=== PATIENT | female | born 1960 | race Caucasian/White ===

== ENCOUNTER → 2021-04-26 | Outpatient (CLI) | payer BC ==
[~2021-04-26] VITALS: Ht 157.5 cm; Wt 122.5 kg
[~2021-04-26] MED LIST: ACE-45 XX; ACET1TAB55 PO; ACET650T61 PO; ACYC200C8 PO; ALPR0.25 PO; ASPI81TA26 PO; BACTDSTA PO; BISAC5TA PO; CALCCAP4 PO; CLAR1TAB13 PO; COVI100V IM; D31000TA2 PO; DECA4TAB PO; DOCU100C16 PO; FAMO20TA PO; LIDOCAINE 1% MDV 20ML VIAL As Ordered ONE; MECL1TAB31 PO; METO5TAB2 PO; MIDAZOLAM INJ 2MG/2ML VIAL (J2250 PER 1MG) As Ordered ONE; NS 1,000 ML IV SCH; OLOP0.1D OU; OXYC-517 PO; POLY17PO18 PO; REVL10CA2 PO; REVL15CA PO; SENN-80 PO; SING10TA32 PO; SYST1SOL4 OU; VANCOMYCIN 1000MG/20ML VIAL As Ordered ONE; VANCOMYCIN 500MG/10ML VIAL As Ordered ONE; VANCOMYCIN HCL 1,000 MG, VIAL MATE ADAPTER 1 EACH in NS 250 ML IV ONE; VANCOMYCIN HCL 500 MG in D5W MINI-BAG PLUS 100 ML IV ONE; commode MC; diphenhydrAMINE 50MG/ML VIAL (J1200) As Ordered ONE; fentaNYL 100 MCG/2 ML INJECTION (J3010) As Ordered ONE; shower chair
--- NOTE | 2021-04-26 13:43 | IRHP ---
[facility] IR Pre-Procedure H & P General Date of Service: Apr 26, 2021 Procedure: Same Day Surgery Interval History and Physical I have seen the patient and reviewed last H & P performed within 30 days. There is no significant interval change. History of Present Illness Chief Complaint The patient is a 60-year-old female admitted with a reason for visit of multiple myeloma. PRE-PROCEDURE DIAGNOSIS: multiple myeloma HEART: normal rate. LUNGS: normal breathing a rest. ASA Classification ASA Classification: II-Mild systemic disease Mallampati Score: II NPO: Yes Problems with prior sedation: No Obstructive Sleep Apnea: No Plan moderate sedation Allergies Coded Allergies: Penicillins (Verified Allergy, Mild, rash, 10/21/20) shellfish derived (Verified Allergy, Mild, hives, 10/21/20) Home Medications Scheduled Acetaminophen (Acetaminophen), 2 TAB PO PRN, (Reported) Acetaminophen (Tylenol Arthritis), 2 TABS PO Q8H, (Reported) Acyclovir (Acyclovir), 1 TAB PO BID Aspirin (Aspirin EC), 1 TAB PO DAILY, (Reported) Bisacodyl (Bisacodyl), 2 TAB PO DAILYPRN, (Reported) Calcium Carbonate/Vitamin D3 (Calcium 600 + Vit D 400 Softgl), 1 TAB PO BID, (Reported) Cholecalciferol (Vitamin D3) (Vitamin D3), 2,000 UNITS PO DAILY, (Reported) Dexamethasone (Decadron), 5 TAB PO 1XWK Famotidine (Famotidine), 1 TAB PO DAILY, (Reported) Loratadine/Pseudoephedrine (Claritin-D 24 Hour Tablet), 1 TAB PO DAILY, (Reported) Olopatadine HCl (Olopatadine HCl), 1 DROP OU BIDP, (Reported) Oxycodone HCl (Oxycodone HCl), 1 TAB PO Q6HP Propylene Glycol/Peg 400/Pf (Systane 0.3-0.4% Eye Drop), 1 DROP OU TID, ( Reported) Sennosides (Senna), 2 TAB PO QHS, (Reported) Sulfamethoxazole/Trimethoprim (Sulfamethoxazole-Tmp Ds Tablet), 1 TAB PO 3XW Miscellaneous Medications Covid-19 Vacc,Mrna(Moderna)/Pf (Moderna Covid19 Vacc(Unapprov)), 100 MCG IM, (Reported) Discontinued Medications Docusate Sodium (Docusate Sodium), 1 CAP PO BID, (Reported) Discontinued Reason: Pt states not taking Lenalidomide (Revlimid), 1 CAP PO ASDIRECTED Discontinued Reason: Pt states not taking Metoclopramide HCl (Metoclopramide HCl), 1 TAB PO TIDP PRN for NAUSEA Discontinued Reason: Pt states not taking Polyethylene Glycol 3350 (Polyethylene Glycol 3350), 17 GRAMS PO BID, (Reported) Discontinued Reason: Pt states not taking Durable Medical Equipment Back Brace (Back Stabilizer), MIS XX, (DME) AMANDA RUCKER MD Apr 26, 2021 13:43
[2021-04-26 16:00] VITALS: BP 127/77
--- NOTE | 2021-05-03 16:08 | IRPON ---
IR Postoperative Note Date Of Procedure: Apr 26, 2021 Time Of Procedure: 16:00 IR Postoperative Note IR Ultrasound and fluoroscopy guided port placement IR Ultrasound of the neck. IR Moderate sedation. Clinical indication: Multiple myeloma. Physician: Dr. Romero. Procedure: The patient was advised of the benefits, risks, and alternatives of the procedure and informed consent was obtained. A time-out was performed with verification of the patient's name, MRN, site of procedure and type of procedure to be performed. The patient was positioned in the supine position on the angiographic table. The site was prepped and draped in the usual sterile fashion. Moderate sedation was performed by the physician including the presence of an independent trained RN who assisted and monitored the patient's level of consciousness and physiologic status. Following the administration of fentanyl and Versed , the physician spent 45 minutes of continuous face to face time with the patient. Ultrasound of the neck reveals a patent and compressible right internal jugular vein. A slp teacher radiograph reveals no gross abnormality. The neck and anterior chest wall were anesthetized with lidocaine. The right internal jugular vein was accessed using a microintroducer needle under ultrasound guidance, via a lateral approach. An 018 wire was advanced into the superior vena cava, the needle was removed and a microsheath was placed. An Amplatz wire was then passed into the inferior vena cava. An incision at the internal jugular vein access site and anterior chest wall were made using a scalpel. An incision was made at the anterior chest wall. A small pocket was created using a combination of blunt and sharp dissection. A tunneling device was then used to pass the catheter from the pocket to the neck puncture site. An 8- [employer] Smart power port was then positioned in the pocket. The catheter was then measured and cut. The introducer sheath was exchanged for a peel-away sheath. The catheter was passed through the peel-away sheath into the internal jugular vein and the peel-away sheath was removed. The port tip was positioned at the cavoatrial junction. The port was then accessed with a Ray needle. The port flushes and aspirates well. The puncture site in the neck was closed. The chest wall incision was then closed with 2-0 Vicryl and 4-0 Monocryl. Glue and Steri- Strips were applied. A sterile dressing was then applied. The patient tolerated the procedure well and was returned to the PRU in stable condition. Estimated blood loss: <5 ml. Complications: None. Conclusion: 1. Successful placement of an 8-[place] Smart power port via the right internal jugular vein. The port is ready for immediate use. 2. Patient to follow up in IR clinic in 2 weeks. Thank you for this referral. AMANDA ROMERO MD May 03, 2021 16:08
== END ==
LOC: M IRPRO 13:02
PROVIDERS: ATTEND Internal Medicine Medical Oncology
DX: C90.00 Multiple myeloma not having achieved remission (principal); Z79.82 Long term (current) use of aspirin; Z79.899 Other long term (current) drug therapy; Z88.0 Allergy status to penicillin; Z91.013 Allergy to seafood
CPT/HCPCS: 36561; 99152; 99153; C1769; C1788; C1894; J1200; J1642; J1644; J2250; J3010; J3370

== ENCOUNTER → 2021-05-25 | Outpatient (POV) | payer BC ==
[~2021-05-25] VITALS: Ht 160 cm; Wt 125.0 kg
[~2021-05-25] MED LIST changes: -LIDOCAINE 1% MDV 20ML VIAL As Ordered ONE; +LOSA25TA14 PO; +METO1TAB7 PO; -MIDAZOLAM INJ 2MG/2ML VIAL (J2250 PER 1MG) As Ordered ONE; -NS 1,000 ML IV SCH; +SIME80TA12 PO; -VANCOMYCIN 1000MG/20ML VIAL As Ordered ONE; -VANCOMYCIN 500MG/10ML VIAL As Ordered ONE; -VANCOMYCIN HCL 1,000 MG, VIAL MATE ADAPTER 1 EACH in NS 250 ML IV ONE; -VANCOMYCIN HCL 500 MG in D5W MINI-BAG PLUS 100 ML IV ONE; -diphenhydrAMINE 50MG/ML VIAL (J1200) As Ordered ONE; -fentaNYL 100 MCG/2 ML INJECTION (J3010) As Ordered ONE
[2021-05-25 14:25] VITALS: BP 168/70
--- NOTE | 2021-05-28 12:12 | IRPN ---
[facility] IR Progress Note IR Progress Note DATE: May 25, 2021 FOLLOW-UP: Patient is status post port placement. Patient reports she is doing well, no fevers, chills or pain at site. ON EXAMINATION: Port site appears to be healing well. No redness, swelling or discharge at site. IMPRESSION: Doing well status post port placement. No further follow-up scheduled unless initiated by patient and/or referring provider. Thank you for this referral Allergies Coded Allergies: Penicillins (Verified Allergy, Mild, rash, 10/21/20) shellfish derived (Verified Allergy, Mild, hives, 10/21/20) VS,Fishbone, I+O VS, Fishbone, I+O Vital Signs Date Time Temp Pulse Resp B/P (MAP) Pulse Ox O2 Delivery O2 Flow Rate FiO2 05/25/21 14:25 97.7 105 20 168/70 (102) 97 Room Air AMANDA RUCKER MD May 28, 2021 12:12
== END ==
LOC: M IRPOV 13:47
PROVIDERS: ATTEND Radiology Diagnostic Radiology
DX: Z45.2 Encounter for adjustment and management of vascular access device (principal); Z88.0 Allergy status to penicillin; Z91.013 Allergy to seafood

== ENCOUNTER → 2021-06-01 | Outpatient (REF) | payer BC ==
[2021-06-01 19:06] LABS: HEMATOCRIT 35.5 % (36.0-47.0); HEMOGLOBIN 11.6 g/dl (12.0-15.5); LYMPH # 0.2 10^3/uL (1.5-5.0); LYMPH % 2.7 % (24.0-44.0); MEAN CORPUSCULAR HEMOGLOBIN 29.5 pg (27.0-33.0); MEAN CORPUSCULAR HGB CONC 32.7 g/dl (32.0-36.5); MEAN CORPUSCULAR VOLUME 90.3 fl (80.0-96.0); MONO # 0.1 10^3/uL (0.0-0.8); MONO % 1.2 % (2.0-8.0); NEUTROPHILS # 5.4 10^3/uL (1.5-8.5); NEUTROPHILS % 95.6 % (36.0-66.0); PLATELET COUNT, AUTOMATED 169 10^3/uL (150-450); RED BLOOD COUNT 3.93 10^6/uL (4.00-5.40); WHITE BLOOD COUNT 5.7 10^3/uL (4.0-10.0)
[2021-06-01 19:22] LABS: ALBUMIN 3.8 GM/DL (3.2-5.2); BILIRUBIN,TOTAL 0.9 MG/DL (0.2-1.0); CALCIUM LEVEL 9.4 MG/DL (8.5-10.1); CREATININE FOR GFR 1.36 MG/DL (0.55-1.30); GLOMERULAR FILTRATION RATE 42.5 (>51); POTASSIUM SERUM 5.1 MEQ/L (3.5-5.1); TOTAL PROTEIN 6.5 GM/DL (6.4-8.2)
== END ==
LOC: M LAB REF 17:53
PROVIDERS: ATTEND Internal Medicine Medical Oncology
DX: C90.00 Multiple myeloma not having achieved remission (principal)

== ENCOUNTER → 2021-07-28 | Outpatient (REF) | payer BC ==
[~2021-07-28] MED LIST changes: +DEXA4TA PO
[2021-07-28 09:09] LABS: ALBUMIN 3.8 GM/DL (3.2-5.2); BILIRUBIN,TOTAL 1.2 MG/DL (0.2-1.0); CALCIUM LEVEL 9.6 MG/DL (8.5-10.1); CHOLESTEROL RISK RATIO 4.623 (<5); CREATININE FOR GFR 1.15 MG/DL (0.55-1.30); GLOMERULAR FILTRATION RATE 51.6 (>51); POTASSIUM SERUM 4.3 MEQ/L (3.5-5.1); TOTAL PROTEIN 6.3 GM/DL (6.4-8.2)
[2021-07-28 10:02] LABS: HEMOGLOBIN A1c 4.4 %
== END ==
LOC: M LAB REF 08:37
PROVIDERS: ATTEND Nurse Practitioner Family
DX: I10 Essential (primary) hypertension (principal)

== ENCOUNTER → 2022-05-25 | Outpatient (REF) | payer BC ==
[~2022-05-25] MED LIST changes: +ACYC1TAB PO; +ASPI1CHW3 PO; -D31000TA2 PO; +LOSA25TA13 PO; -LOSA25TA14 PO; +METO1TAB33 PO; -OLOP0.1D OU; +OLOP5DRO16 OU; +PEPC40TA12 PO; +VITA100093 PO
[2022-05-25 09:33] LABS: BASO # 0.1 10^3/uL (0.0-0.2); BASO % 2.3 % (0.0-1.0); EOS # 0.6 10^3/uL (0.0-0.5); EOS % 10.6 % (0.0-3.0); HEMOGLOBIN 14.1 g/dl (12.0-15.5); LYMPH % 17.4 % (24.0-44.0); MEAN CORPUSCULAR HEMOGLOBIN 29.3 pg (27.0-33.0); MEAN CORPUSCULAR VOLUME 91.3 fl (80.0-96.0); MONO # 0.5 10^3/uL (0.0-0.8); NEUTROPHILS # 3.5 10^3/uL (1.5-8.5); NEUTROPHILS % 59.8 % (36.0-66.0); PLATELET COUNT, AUTOMATED 202 10^3/uL (150-450); RED BLOOD COUNT 4.82 10^6/uL (4.00-5.40); WHITE BLOOD COUNT 5.8 10^3/uL (4.0-10.0)
[2022-05-25 10:23] LABS: APPEARANCE, URINE MANUAL HAZY (CLEAR); COLOR, URINE MANUAL DK YELLOW (YELLOW); SPECIFIC GRAVITY,URINE MANUAL 1.025 (1.002-1.035)
[2022-05-25 10:24] LABS: BILIRUBIN, URINE MANUAL NEGATIVE (NEGATIVE); BLOOD URINE MANUAL NEGATIVE (NEGATIVE); GLUCOSE, URINE (UA) MANUAL NEGATIVE (NEGATIVE); KETONE, URINE MANUAL 1+ mg/dL (NEGATIVE); LEUKOCYTE ESTERASE, URINE MAN POSITIVE (NEGATIVE); NITRITE, URINE MANUAL NEGATIVE (NEGATIVE); PROTEIN, URINE MANUAL TRACE mg/dL (NEGATIVE); UROBILINOGEN, URINE MANUAL NORMAL (NORMAL)
[2022-05-25 10:44] LABS: ALBUMIN 4.1 GM/DL (3.2-5.2); ALT/SGPT 28 U/L (12-78); BILIRUBIN,TOTAL 0.7 MG/DL (0.2-1.0); BLOOD UREA NITROGEN 18 MG/DL (7-18); CALCIUM LEVEL 9.7 MG/DL (8.5-10.1); CARBON DIOXIDE LEVEL 27 MEQ/L (21-32); CHLORIDE LEVEL 106 MEQ/L (98-107); CREATININE FOR GFR 0.99 MG/DL (0.55-1.30); GLOMERULAR FILTRATION RATE > 60.0 (>51); GLUCOSE, FASTING 102 MG/DL (70-100); IMMUNOGLOBULIN A 37.5 MG/DL (70-400); IMMUNOGLOBULIN G 385 MG/DL (681-1648); IMMUNOGLOBULIN M 16.2 MG/DL (40-230); SODIUM LEVEL 138 MEQ/L (136-145); TOTAL PROTEIN 6.4 GM/DL (6.4-8.2)
[2022-05-25 11:16] LABS: CALCIUM OXALATE CRYSTALS,URINE SMALL AMOUNT /hpf; RBC, URINE NONE SEEN /hpf (0-3); SQUAMOUS EPITHELIAL CELL URINE SMALL AMOUNT /hpf (SMALL AMT)
[2022-05-25 11:22] LABS: BACTERIA, URINE SMALL AMOUNT; HYALINE CAST, URINE NONE SEEN /lpf (0-1); MUCUS, URINE SMALL AMOUNT (NEGATIVE)
== END ==
LOC: M LAB REF 07:59
PROVIDERS: ATTEND Nurse Practitioner Family
DX: Z94.84 Stem cells transplant status (principal)

== ENCOUNTER → 2022-05-27 | Outpatient (REF) | payer BC ==
[2022-05-27 16:22] LABS: TOTAL PROTEIN 24 HOUR URINE 152.4 MG/24HR (50-150)
== END ==
LOC: M LAB REF 15:25
PROVIDERS: ATTEND Nurse Practitioner Family
DX: Z94.84 Stem cells transplant status (principal)

== ENCOUNTER → 2022-11-07 | Outpatient (CLI) | payer BC ==
[~2022-11-07] MED LIST changes: +ACET500P3 PO; +ASPI81CH33 PO; +BACT800T5 PO; +vitamin C PO
== END ==
LOC: M PLARAD 13:36
PROVIDERS: ATTEND Internal Medicine Medical Oncology
DX: C90.00 Multiple myeloma not having achieved remission (principal)
CPT/HCPCS: 78816; A9552

== ENCOUNTER → 2022-11-24 | Outpatient (REF) | payer BC ==
[~2022-11-24] MED LIST changes: +CIPR250T3 PO; +MONT-5 PO; -SING10TA32 PO
[2022-11-24 15:56] LABS: APPEARANCE, URINE CLEAR (CLEAR); BACTERIA, URINE AUTO NEGATIVE (NEGATIVE); BILIRUBIN, URINE AUTO NEGATIVE (NEGATIVE); BLOOD, URINE BLOOD NEGATIVE (NEGATIVE); COLOR, URINE YELLOW (YELLOW); GLUCOSE, URINE (UA) AUTO NEGATIVE (NEGATIVE); KETONE, URINE AUTO NEGATIVE (NEGATIVE); LEUKOCYTE ESTERASE, URINE AUTO NEGATIVE (NEGATIVE); MUCUS, URINE SMALL (NEGATIVE); NITRITE, URINE AUTO NEGATIVE (NEGATIVE); PROTEIN, URINE AUTO NEGATIVE (NEGATIVE); RBC, URINE AUTO 1 /HPF (0-3); SPECIFIC GRAVITY URINE AUTO 1.023 (1.002-1.035); SQUAMOUS EPITHELIAL CELL UR AU 1 /HPF (0-6); UROBILINOGEN, URINE AUTO 0.2 mg/dL (0.0-2.0); WBC, URINE AUTO 1 /HPF (0-3)
== END ==
LOC: M SMT 15:12
PROVIDERS: ATTEND Physician Assistant
DX: R31.9 Hematuria, unspecified (principal)

== ENCOUNTER → 2022-12-09 | Outpatient (REF) | payer BC ==
[2022-12-09 18:27] LABS: APPEARANCE, URINE CLEAR (CLEAR); BACTERIA, URINE AUTO NEGATIVE (NEGATIVE); BILIRUBIN, URINE AUTO NEGATIVE (NEGATIVE); BLOOD, URINE BLOOD NEGATIVE (NEGATIVE); COLOR, URINE YELLOW (YELLOW); GLUCOSE, URINE (UA) AUTO NEGATIVE (NEGATIVE); KETONE, URINE AUTO NEGATIVE (NEGATIVE); LEUKOCYTE ESTERASE, URINE AUTO 2+ (NEGATIVE); NITRITE, URINE AUTO NEGATIVE (NEGATIVE); PROTEIN, URINE AUTO NEGATIVE (NEGATIVE); RBC, URINE AUTO 0 /HPF (0-3); SPECIFIC GRAVITY URINE AUTO 1.019 (1.002-1.035); SQUAMOUS EPITHELIAL CELL UR AU 2 /HPF (0-6); UROBILINOGEN, URINE AUTO 0.2 mg/dL (0.0-2.0); WBC, URINE AUTO 3 /HPF (0-3)
== END ==
LOC: M SMT 17:19
PROVIDERS: ATTEND Urology
DX: R31.0 Gross hematuria (principal)

== ENCOUNTER 2023-01-23 06:02 | Day surgery (SDC) | payer BC ==
[~2023-01-23] VITALS: Ht 160 cm; Wt 142.4 kg
[~2023-01-23 06:02] MED LIST changes: +ASPI-655 PO; -ASPI1CHW3 PO; -OLOP5DRO16 OU; +OLOP5DRO17 OU; +SENN-186 PO; -SENN-80 PO
[2023-01-23] MEDS ORDERED: LR 1,000 ML IV SCH ×2 (06:40→08:35)
[2023-01-23] MEDS ORDERED: ceFAZolin SOD 3 GM in IV 1 EA IV ONE (07:20)
[2023-01-23] MEDS ORDERED: ONDANSETRON 4MG 2ML VIAL As Ordered ONE (07:22)
[2023-01-23] MEDS ORDERED: MIDAZOLAM INJ 2MG/2ML VIAL As Ordered ONE (07:22)
[2023-01-23] MEDS ORDERED: fentaNYL 100 MCG/2 ML INJECTION As Ordered ONE (07:22)
[2023-01-23] MEDS ORDERED: propofoL 200 MG/20 ML VIAL As Ordered ONE (07:22)
[2023-01-23] MEDS ORDERED: LIDOCAINE 2% 100MG/5ML SDV (FOR ANES.) As Ordered ONE (07:22)
[2023-01-23] MEDS ORDERED: ceFAZolin SOD 2 GM in IV 1 EA IV ONE (07:25)
[2023-01-23] MEDS ORDERED: ceFAZolin SOD 1 GM in D5W MINI-BAG PLUS 50 ML IV ONE (07:25)
[2023-01-23] MEDS ORDERED: ROCURONIUM BROMIDE 50MG/5ML VIAL As Ordered ONE (07:45)
[2023-01-23] MEDS ORDERED: SUGAMMADEX SODIUM 500 MG/5 ML VIAL (BRIDION) As Ordered ONE (08:17)
[2023-01-23] MEDS ORDERED: LACRILUBE (AKWA TEARS) OPHTH OINT 3.5GM As Ordered ONE (08:23)
[2023-01-23] MEDS ORDERED: OXYB5TAB10 PO (08:35)
[2023-01-23] MEDS ORDERED: ONDANSETRON 4MG 2ML VIAL IV PRN (08:35)
[2023-01-23] MEDS ORDERED: PYRI1TAB5 PO (08:35)
[2023-01-23] MEDS ORDERED: ACYC1TAB PO (09:37)
[2023-01-23 10:35] VITALS: BP 130/85
== END 2023-01-23 10:40 | disposition home or self-care (01) ==
LOC: M SDC 06:02
PROVIDERS: ATTEND Urology
DX: C67.1 Malignant neoplasm of dome of bladder (principal); I10 Essential (primary) hypertension; K21.9 Gastro-esophageal reflux disease without esophagitis; C90.00 Multiple myeloma not having achieved remission; M54.9 Dorsalgia, unspecified; Z88.0 Allergy status to penicillin; Z91.013 Allergy to seafood; Z79.899 Other long term (current) drug therapy; Z79.82 Long term (current) use of aspirin
CPT/HCPCS: 52240; 88307; J0690; J1100; J2250; J2405; J3010

== ENCOUNTER → 2023-02-15 | Outpatient (REF) | payer BC ==
[~2023-02-15] MED LIST changes: +IXAZ4CAP PO; +OXYB5TAB10 PO; +POMA4CAP PO; +PYRI1TAB5 PO
[2023-02-15 18:25] LABS: APPEARANCE, URINE HAZY (CLEAR); BACTERIA, URINE AUTO NEGATIVE (NEGATIVE); BILIRUBIN, URINE AUTO NEGATIVE (NEGATIVE); BLOOD, URINE BLOOD 2+ (NEGATIVE); COLOR, URINE AMBER (YELLOW); GLUCOSE, URINE (UA) AUTO NEGATIVE (NEGATIVE); KETONE, URINE AUTO NEGATIVE (NEGATIVE); LEUKOCYTE ESTERASE, URINE AUTO 2+ (NEGATIVE); MUCUS, URINE SMALL (NEGATIVE); NITRITE, URINE AUTO NEGATIVE (NEGATIVE); PROTEIN, URINE AUTO 3+ mg/dL (NEGATIVE); RBC, URINE AUTO TNTC /HPF (0-3); SPECIFIC GRAVITY URINE AUTO 1.024 (1.002-1.035); SQUAMOUS EPITHELIAL CELL UR AU 2 /HPF (0-6); UROBILINOGEN, URINE AUTO 0.2 mg/dL (0.0-2.0); WBC, URINE AUTO 5 /HPF (0-3)
== END ==
LOC: M LAB REF 16:51
PROVIDERS: ATTEND Urology
DX: D49.4 Neoplasm of unspecified behavior of bladder (principal)